=== PATIENT | female | born 1970 | race Two or more races ===

== ENCOUNTER 2020-09-15 05:45 | Inpatient (IN) | payer BC ==
[2020-09-15] VITALS (12 sets, daily range): BP systolic 86–114; BP diastolic 57–74
[~2020-09-15] VITALS: Ht 152.4 cm; Wt 83.5 kg
[~2020-09-15 05:45] MED LIST: FARXIGA10 MG PO; HUMALOG100 UNIT/1 SUBQ; LEVEMIR FL100 UNIT/2 SQ; METFORMIN HCL500 M1 ORAL
[2020-09-15] MEDS ORDERED: cefOXitin Sod 1 GM in D5W 55 ML IVPB SCH (07:00)
[2020-09-15] MEDS ORDERED: Ropivacaine 5mg/ml Vial 30ml INJ ONE (07:07)
[2020-09-15] MEDS ORDERED: Midazolam 2mg/2ml Inj ONE (07:12)
[2020-09-15] MEDS ORDERED: fentaNYL 100 mcg/2 mL IV ONE (07:12)
[2020-09-15] MEDS ORDERED: cefOXitin 1gm Inj ONE (07:26)
[2020-09-15] MEDS ORDERED: Duramorph PF 10mg/10ml amp ONE (07:27)
[2020-09-15] MEDS ORDERED: Sterile Water Irrig 1000ml IRRIG ONE (07:30)
[2020-09-15] MEDS ORDERED: ePHEDrine 50mg/ml Inj ONE (07:30)
[2020-09-15] MEDS ORDERED: NS Irrig 1000ml ONE (07:30)
[2020-09-15] MEDS ORDERED: LR 1000ml ONE (07:30)
[2020-09-15] MEDS ORDERED: NS Irrig 1000ml IRRIG ONE (08:00)
--- NOTE | 2020-09-15 08:00 | Pre-Procedure Note/Attestation ---
Pre-Procedure Note/Attestation Complete Prior to Procedure Planned Procedure: bilateral Procedure Narrative: Total Abdominal Hysterectomy, Bilateral Salpingo-oophorectomy Indications for Procedure Pre-Operative Diagnosis: Abnormal Uterine Bleeding, Pelvic Pain Attestation I attest that I discussed the nature of the procedure; its benefits; risks and complications; and alternatives (and the risks and benefits of such alternatives), prior to the procedure, with the patient (or the patient's legal traffic representative). I attest that, if there was a reasonable possibility of needing a blood transfusion, the patient (or the patient's legal traffic representative) was given the [facility] standardized written summary, pursuant to the Inder Feder[employer] Blood Safety Act ([place] Health and Safety Code # 1645, as amended). I attest that I re-evaluated the patient just prior to the surgery and that there has been no change in the patient's H&P, except as documented below: Riki Mejias MD Sep 15, 2020 08:00
[2020-09-15] MEDS ORDERED: Metoclopramide 10mg/2ml Inj ONE (08:45)
[2020-09-15] MEDS ORDERED: Lidocaine 1% MPF 10mg/ml 5ml ONE (08:45)
[2020-09-15] MEDS ORDERED: Rocuronium Bromide 50mg/5ml Inj IV ONE (09:52)
--- NOTE | 2020-09-15 10:29 | Anethesia Preoperative Eval ---
Anesthesia Pre-op PMH/ROS General Date of Evaluation: Sep 15, 2020 Time of Evaluation: 07:00 Anesthesiologist: yadiel ASA Score: ASA 2 Mallampati Score Class I : Soft palate, uvula, fauces, pillars visible Class II: Soft palate, uvula, fauces visible Class III: Soft palate, base of uvula visible Class IV: Only hard plate visible Mallampati Classification: Class II Surgeon: Magalie Surgical Procedure: FIORDALIZA Anesthesia History: none Family History: no anesthesia problems Allergies: Coded Allergies: No Known Allergies (Unverified , 09/15/20) Medications: see eMAR Patient NPO?: Yes NPO Date: Sep 15, 2020 NPO Time: 00:01 Past Medical History Pulmonary: Denies: asthma, COPD, MAGNOLIA, other Gastrointestinal/Genitourinary: Reports: GERD; Denies: CRI, ESRD, other Neurologic/Psychiatric: Reports: depression/anxiety; Denies: dementia, CVA, TIA, other Endocrine: Reports: DM; Denies: hypothyroidism, steroids, other HEENT: Denies: cataract (L), cataract (R), glaucoma, [place] (L), [place] (R), other Hematology/Immune: Reports: anemia, bleeding disorder Musculoskeletal/Integumentary: Denies: OA, RA, DJD, DDD, edema, other Other: obesity PSxH Narrative: ovaria cystectomy - no complication Anesthesia Pre-op Phys. Exam Physician Exam Last Vital Signs Date Time Temp Pulse Resp B/P (MAP) Pulse Ox O2 Delivery O2 Flow Rate FiO2 09/15/20 06:25 Room Air 09/15/20 06:22 97.5 63 18 114/74 (87) 98 Constitutional: NAD Neurologic: CN 2-12 intact Cardiovascular: RRR Respiratory: CTA Gastrointestinal: S/NT/ND Airway Exam Mallampati Classification 2 Mallampati Score: Class II MO: full ROM: full Dentures: no upper, no lower Anesthesia Pre-op A/P Labs Chemistry Test 09/15/20 06:23 POC Whole Blood Glucose Pending Urine Test Test 09/15/20 06:15 Urine HCG, Qualitative Negative (NEGATIVE) Studies Pre-op Studies: EKG - SR Risk Assessment & Plan Assessment: covid neg Plan: general/spinal Status Change Before Surgery: No Pre-Antibiotics Drug: mefoxitin Given Within 1 Hr of Incision: Yes Time Given: 07:40 Lali Nevarez CRNA Sep 15, 2020 10:29
[2020-09-15] MEDS ORDERED: Metoclopramide 10mg/2ml Inj IVP PRN (10:30)
[2020-09-15] MEDS ORDERED: fentaNYL 100 mcg/2 mL IV PRN (10:30)
[2020-09-15] MEDS ORDERED: Hydromorphone 0.5mg/0.5ml inj IVP PRN (10:30)
[2020-09-15] MEDS ORDERED: Acetaminophen (Non formulary) 100 ML IV ONE (10:30)
[2020-09-15] MEDS ORDERED: DiphenhydrAMINE 50mg/ml Inj IVP PRN (11:00)
--- NOTE | 2020-09-15 11:00 | Brief Operative Note ---
Immediate Post Operative Note Operative Note Pre-op Diagnosis: Abnormal Uterine Bleeding, Pelvic Pain Procedure: FIORDALIZA, BSO, adhesiolysis, enterolysis Post-op Diagnosis: same as pre-op Findings: consistent w/pre-op dx studies Surgeon: Riki Mejias Valve Repairer: Smiley García Anesthesiologist: Farrah Fallon Anesthesia: general Specimen: yes - Uterus, bilateral tubes and ovaries Complications: none Condition: stable Fluids: LR @125 cc/hr Estimated Blood Loss: volume - 150 ml Drains: none Implant(s) used?: No Riki Mejias MD Sep 15, 2020 11:00
--- NOTE | 2020-09-15 11:00 | Immediate Post-Op Evaluation ---
Immediate Post-Op Evalulation Immediate Post-Op Evalulation Procedure: FIORDALIZA Date of Evaluation: Sep 15, 2020 Time of Evaluation: 10:55 IV Fluids: 2000 Estimated Blood Loss: 150 Urinary Output: 200 Blood Pressure Systolic: 100 Blood Pressure Diastolic: 60 Pulse Rate: 108 Respiratory Rate: 14 O2 Sat by Pulse Oximetry: 98 Temperature (Fahrenheit): 98.9 Nausea: No Vomiting: No Complications none Patient Status: awake, reacts, patent Hydration Status: adequate Drug: mefoxitin Given Within 1 Hr of Incision: Yes Time Given: 07:40 Lali Nevarez CRNA Sep 15, 2020 11:00
--- NOTE | 2020-09-15 12:28 | NUR ---
NURSE NOTES: Handoff received from Mara FERRARA. Patient is awake and alert, no signs of acute distress noted. Right hand IV is intact and asymptomatic, running IVF as ordered. Bennett catheter noted, patent and draining to gravity. Dressings are clean, dry, and intact, no vaginal bleeding noted. Patient updated on diet and plan of care. bed is low and locked, side rails up x2, call light is within reach.
--- NOTE | 2020-09-15 12:33 | 48 Hour Post Anesthesia Eval ---
Post Anesthesia Evaluation Procedure: [facility] Date of Evaluation: Sep 15, 2020 Time of Evaluation: 12:32 Blood Pressure Systolic: 99 0: 50 Pulse Rate: 70 Respiratory Rate: 14 O2 Sat by Pulse Oximetry: 98 Airway: patent Nausea: No Vomiting: No Pain Intensity: 4 Hydration Status: adequate Cardiopulmonary Status: stable Mental Status/LOC: patient returned to baseline Post-Anesthesia Complications: none Follow-up care needed: N/A Lali Nevarez CRNA Sep 15, 2020 12:33
--- NOTE | 2020-09-15 13:20 | NUR ---
NURSE NOTES: forest technology professor messaged Dr. Mejias regarding home medications, awaiting response.
[2020-09-15] MEDS: D5 1/2NS w/KCl 20mEq 1,000 ML IV SCH ×2 (14:43→22:44)
[2020-09-15] MEDS: Tranexamic Acid 500 MG in NS 55 ML IVPB SCH ×2 (14:43→22:05)
--- NOTE | 2020-09-15 15:17 | NUR ---
CASE MANAGEMENT:INITIAL REVIEW PATIENT FROM HOME FOR PRE-PLANNED SURGERY SI;TOTAL ABDOMINAL HYSTERECTOMY BILATERAL SALPINGO-OOPHORECTOMY. ADHESIOLYSIS. ENTEROLYSIS. 98.9 121 23 89/57 97% 3L NC URINE HCG ~ NEGATIVE COVID RAPID ~ NEGATIVE TYPE AND CROSS IS;IVF NS BOLUS ZOFRAN IV REGLAN IV PROPOFOL IV VERSED IV VASOPRESSIN IV MEFOXIN IV DILAUDID IV ADMITTED TO MED SURG 3E 09/15/20 @ 1056 MED SURG STATUS DCP;PATIENT IS FROM HOME
--- NOTE | 2020-09-15 15:30 | Operative Note - Dictated ---
DATE OF OPERATION: 09/15/2020 PREOPERATIVE DIAGNOSES: Abnormal uterine bleeding and severe dysmenorrhea. POSTOPERATIVE DIAGNOSES: Abnormal uterine bleeding, severe dysmenorrhea, and pelvic and bowel adhesions. PROCEDURE PERFORMED: Total abdominal hysterectomy, bilateral salpingo-oophorectomy, pelvic adhesiolysis, and enterolysis. SURGEON: Riki Mejias MD CASH CHECKER: Smiley García MD ANESTHESIA: General endotracheal and spinal. ANESTHESIOLOGIST: Lali Nevarez CRNA PROCEDURE IN DETAIL: After all the appropriate consents were signed, the patient was brought to the operating room, placed on the table in supine position. General anesthesia was performed after spinal anesthesia was introduced. The patient was then placed in dorsal position and the abdomen and pelvis were prepped in the usual fashion for the procedure. A Bennett catheter was placed in the bladder. At this time, the patient was draped and the procedure began with making a Pfannenstiel incision around the previous scar. The previous scar was excised and the procedure continued to the subcutaneous tissue until the fascia was reached. The fascia was excised, incised, and the incision was extended bilaterally to expose the rectus muscle. Rectus muscle was reflected away from the fascia both inferiorly and superiorly. The rectus muscle was parted in the midline and peritoneum was entered sharply. Dash retractor was placed and the procedure then continued with identifying the uterus and retracting the uterus anteriorly towards the surgeons. There were some adhesions from bowel to the posterior of the uterus as well as pelvic adhesions to the uterus bilaterally. The ovaries also had some adhesions from the pelvic sidewall and from the omentum. At this time, the procedure continued with using Kochers to clamp the round ligaments. The ligaments were transected and suture ligated bilaterally. The procedure then continued with entering of the broad ligament and the uteroovarian ligaments along with the infundibulopelvic ligament were clamped, cut, and double suture ligated. Once this was completed on the right side, the same procedure was also completed on the left side. However, the ovary could not be included in the tie. Therefore, only the uteroovarian ligament was clamped, cut, and suture ligated. The procedure then continued with identifying the uterine vessels and right uterine vessels were clamped, cut, and suture ligated. The same was repeated on the left side. The cardinal ligaments were then clamped, cut, and suture ligated bilaterally until the end of the cervix was reached. The uterosacral ligaments were then clamped along with vaginal cuff and the pelvis and the uterus was completely extirpated and removed from the field. The vaginal cuff was then closed using interrupted 0 Vicryl sutures in a running fashion. At this time, the attention was turned to the left ovary and tubes and these were elevated. Additional adhesiolysis was necessary to free up tube and ovary from left pelvic sidewall. Once this was completed, the procedure continued with elevating the ovary and tube clamping and cutting and suture ligating the pedicle. At this time, irrigation was placed with old blood and debris suctioned. Once this was completed, the pelvis was once again re-evaluated and additional bleeders were identified once again after the irrigation was completed and once again when the pelvis was evaluated the one more time bleeders were identified and suture ligated. The procedure then continued with closure of the abdomen. Peritoneum was closed using 2-0 suture. The rectus muscle was approximated in the midline and the fascia was closed using 0 Vicryl suture bilaterally. The subcutaneous tissue was closed using plain suture and skin was closed using stainless steel baldo. The patient was then awakened from general anesthesia and brought to the recovery room in excellent condition. She tolerated the procedure very well. Riki Mejias M.D. DR: GRAY JOB#: [id number] CC:
[2020-09-15] MEDS: HYDROmorphone 1mg/ml Carpuject IVP PRN ×3 (16:09→22:06)
--- NOTE | 2020-09-15 16:36 | NUR ---
NURSE NOTES: Left message for Dr. Mejias regarding patient's home medications, awaiting return call.
[2020-09-15] MEDS ORDERED: METFORMIN HCL1000 M1 ORAL (16:47)
[2020-09-15] MEDS: Docusate 100mg cap ORAL SCH (18:00)
[2020-09-15] MEDS: HYDROcodone/Acetamin 5/325 tab ORAL PRN (18:06)
--- NOTE | 2020-09-15 19:30 | NUR ---
NURSE HAND-OFF: Important Events on Shift:[transfer to 3e] Patient Status: stable Diet: clear liq Pending Orders: none Pending Results/Labs: Pending MD notification: Latest Vital Signs: Temperature 97.2 , Pulse 98 , B/P 90 /60 , Respiratory Rate 15 , O2 SAT 98 , Room Air, O2 Flow Rate 3 . Vital Sign Comment: stable Latest Bahena Fall Score: 35 Fall Risk: Medium Risk Safety Measures: Call light , Bed Alarm , Side Rails Side Rails x1, Bed position . Fall Precautions: Report given to Bryan RN.
--- NOTE | 2020-09-15 19:32 | NUR ---
NURSE NOTES: Received patient from Estrada FERRARA.The patient is alert and oriented x4 and cooperative with her care.The Resp is even and unlabored and she is on Room air.She was help with turning and reposition q2 hr PRN as indicated.She has a Right hand 20g that is intact and asymptomatic. On skin assessment, she has a surgical incision on the lower abdomen that was covered with foam dressing, ABD and steri strip and is clean and dry with no bleeding noted.She also has a Bennett catheter draining under gravity of pale yellowish urine.The bed in low and locked level and the bedsides rails up x2, call light within easy reach and will continue to monitor as indicated.
--- NOTE | 2020-09-15 20:24 | NUR ---
NURSE NOTES: The patient was noted with no primary Doctor, No internal medicine doctor. Dr. Mejias was notified as indicated. He is aware and will arrange someone tomorrow.
[2020-09-15] MEDS: DiphenhydrAMINE 50mg/ml Inj IVP PRN (22:43)
[2020-09-16] VITALS (7 sets, daily range): BP systolic 107–112; BP diastolic 61–76
[2020-09-16] MEDS: HYDROmorphone 1mg/ml Carpuject IVP PRN ×2 (03:14→06:24)
[2020-09-16 05:26] LABS: BASOPHILS % (AUTO) 0.4 % (0.0-2.0); EOSINOPHILS % (AUTO) 0.5 % (0.0-3.0); HEMATOCRIT 32.9 % (37.0-47.0); HEMOGLOBIN 11.2 G/DL (12.0-16.0); MEAN CORPUSCULAR VOLUME 89 FL (80-99); MONOCYTES % (AUTO) 3.9 % (1.0-10.0); NEUTROPHILS % (AUTO) 84.2 % (45.0-75.0); PLATELET COUNT 265 K/UL (150-450); RED CELL DISTRIBUTION WIDTH 12.4 % (11.6-14.8); WHITE BLOOD COUNT 10.1 K/UL (4.8-10.8)
[2020-09-16 05:47] LABS: ANION GAP 6 mmol/L (5-15); BLOOD UREA NITROGEN 5 mg/dL (7-18); CARBON DIOXIDE 28 MMOL/L (21-32); CHLORIDE 102 MMOL/L (98-107); CREATININE 0.7 MG/DL (0.55-1.30); PHOSPHORUS 3.9 MG/DL (2.5-4.9); POTASSIUM 3.9 MMOL/L (3.5-5.1); SODIUM 136 MMOL/L (136-145)
[2020-09-16] MEDS: D5 1/2NS w/KCl 20mEq 1,000 ML IV SCH ×2 (06:22→15:39)
[2020-09-16] MEDS: DiphenhydrAMINE 50mg/ml Inj IVP PRN (06:23)
[2020-09-16] MEDS: Tranexamic Acid 500 MG in NS 55 ML IVPB SCH (06:23)
--- NOTE | 2020-09-16 07:19 | NUR ---
HAND-OFF: Report given to Jonatan FERRARA.
--- NOTE | 2020-09-16 07:45 | NUR ---
NURSE NOTES: Received patient from JOSIAS Adams. Pt alert and oriented, able to make needs known. on RA, breathing even and unlabored Denied any pain at this time. Noted with surgical wound dressing on abdomen, clean and dry. Noted with Bnenett catheter patent draining yellow urine. bed in low and locked side rails up x2, call light within easy reach and will continue to monitor.
[2020-09-16] MEDS: HYDROcodone/Acetamin 5/325 tab ORAL PRN (08:40)
[2020-09-16] MEDS: Docusate 100mg cap ORAL SCH ×2 (08:40→17:26)
[2020-09-16] MEDS ORDERED: Ketorolac 60mg Inj IM SCH (10:00)
[2020-09-16] MEDS ORDERED: HYDROcodone/Acetamin 10/325 tab ORAL PRN (10:00)
--- NOTE | 2020-09-16 12:26 | NUR ---
NURSE NOTES: Removed Bennett cath per MD order. Will continue to monitor.
--- NOTE | 2020-09-16 13:13 | NUR ---
PT Note PT judith completed, treatment initiated. Patient c/o increased pain on her abdominal incisions during any movement, specially with bed mobility tasks. Patient needs PT to increase muscle strength and instruct/train on safe transfer techniques to improve her functional mobility and gait to enable her to return home. Addendum: 09/16/20 at 1314 by KOFI MESA PT Amended: Links added.
--- NOTE | 2020-09-16 13:50 | NUR ---
NURSE NOTES: Pt voided 300cc clear yellow urine
[2020-09-16] MEDS: Milk of Magnesia 30ml Ud ORAL PRN (14:28)
[2020-09-16] MEDS ORDERED: Ketorolac 30mg Inj IV SCH (16:00)
[2020-09-16] MEDS: metFORMIN 500mg tab ORAL SCH (17:26)
--- NOTE | 2020-09-16 19:15 | NUR ---
NURSE HAND-OFF: Important Events on Shift:[DC briceno, Voiding well, pain control with toradol IM, DC IVF, Removed surgical wound dressing by MD. continue for bowel management] Patient Status: [stable] Diet: [clear liquid] Pending Orders: [] Pending Results/Labs:[] Pending MD notification:[] Latest Vital Signs: Temperature 97.8 , Pulse 74 , B/P 110 /72 , Respiratory Rate 18 , O2 SAT 95 , Room Air, O2 Flow Rate 3 . Vital Sign Comment: [stable] Latest Bahena Fall Score: 35 Fall Risk: Medium Risk Safety Measures: Call light Within Reach, Bed Alarm Zone 2, Side Rails Side Rails x2, Bed position Low and Locked. Fall Precautions: Yellow Socks Yellow Gown Door Sign Patient Fall Education Report given to [LANEY Krishna].
--- NOTE | 2020-09-16 20:00 | NUR ---
NURSE NOTES: RECEIVED PATIENT LYING IN BED, AWAKE, ALERT/ORIENTED X4, ABLE TO VERBALIZE NEEDS/DISCOMFORT, CURRENT COMPLAINT OF ABDOMINAL PAIN, 7/10; REINFORCED PAIN MANAGEMENT, VERBALIZED UNDERSTANDING. NO IV ACCESS, MD AWARE. NO SIGNS AND SYMPTOMS OF ACUTE CARDIO RESPIRATORY DISTRESS/SHORTNESS OF BREATH, NO PERIPHERAL EDEMA NOTED. S/P TOTAL ABDOMINAL HYSTERECTOMY, BILATERAL SALPINGO OOPHRECTOMY, ADHESIOLYSIS, ENTEROLYSIS, JOSE ENRIQUE INTACT/OPEN TO AIR. SIDE RAILS UP X2, BED IN LOWEST POSITION FOR SAFETY, ENCOURAGED PATIENT TO UTILIZE CALL LIGHT FOR ASSISTANCE, VERBALIZED UNDERSTANDING, CONTINUE WITH CURRENT PLAN OF CARE. NAD.
--- NOTE | 2020-09-16 20:00 | NUR ---
NURSE NOTES: RECEIVED PATIENT LYING IN BED, AWAKE, ALERT/ORIENTED X4, VERBALLY RESPONSIVE, COMPLAINED OF BACK PAIN 07/10, CHRONIC; EDUCATED PATIENT ON PAIN MANAGEMENT, VERBALIZED UNDERSTANDING. NO SIGNS AND SYMPTOMS OF ACUTE CARDIO RESPIRATORY DISTRESS/SHORTNESS OF BREATH, NO PERIPHERAL EDEMA NOTED. S/P LEFT L5-S1 DECOMPRESSION, RESECTION SYNOVIAL CYST - LF-L5, L5-S1 ALIF, DRESSINGS DRY AND INTACT TO BACK/ABDOMEN, NO STAIN NOTED. ABDOMEN LARGE, SOFT, REGULAR PO DIET 09/17, PATIENT AWARE. SIDE RAILS UP X2, BED IN LOWEST POSITION FOR SAFETY, ENCOURAGED PATIENT TO UTILIZE CALL LIGHT FOR ASSISTANCE, VERBALIZED UNDERSTANDING, CONTINUE WITH CURRENT PLAN OF CARE. NAD. Addendum: 09/17/20 at 0107 by DAYANNA BAILEY LVN CHARTED IN ERROR-
[2020-09-16] MEDS: Ketorolac 30mg Inj IM SCH (21:58)
[2020-09-17] VITALS: BP 120/66
[2020-09-17 04:00] VITALS: BP 109/64
[2020-09-17] MEDS: Ketorolac 30mg Inj IM SCH ×4 (04:25→21:54)
[2020-09-17] MEDS: Milk of Magnesia 30ml Ud ORAL PRN ×2 (04:25→20:52)
--- NOTE | 2020-09-17 06:58 | NUR ---
NURSE HAND-OFF: Important Events on Shift:[ABDOMINAL SURGICAL DRESSING REMOVED BY DR. MOISE,JOSE ENRIQUE INTACT, OPEN TO AIR-NO BOWEL MOVEMENT/GIVEN MOM THIS MORNING] Patient Status: [STABLE, AFEBRILE] Diet: [CARDIAC] Pending Orders: [N/A] Pending Results/Labs:[NA] Pending MD notification:[] Latest Vital Signs: Temperature 98.2 , Pulse 72 , B/P 109 /64 , Respiratory Rate 18 , O2 SAT 96 , Room Air, O2 Flow Rate 3 . Vital Sign Comment: [STABLE, AFEBRILE] Latest [place] Fall Score: 35 Fall Risk: Medium Risk Safety Measures: Call light Within Reach, Bed Alarm Zone 2, Side Rails Side Rails x2, Bed position Low and Locked. Fall Precautions: Yellow Socks Yellow Gown Door Sign Patient Fall Education Report given to [JOSIAS VOGT]. Addendum: 09/17/20 at 0755 by DAYANNA BAILEY LVN NURSE NOTES: PATIENT ON CLEAR LIQUID DIET
--- NOTE | 2020-09-17 07:30 | NUR ---
NURSE NOTES: Received report from Laurence DAVISON. Patient is awake and oriented during rounds, standing at bedside, grasping abdomen and complaining of severe pain r/t trying to cough. Patient assisted to bed and instructed to splint abdomen with pillow when coughing, patient education on coughing, deep breathing, and IS use provided and patient verbalized understanding and returned demonstration. Patient offered PRN pain medication but refused and stated she wanted to wait for toradol shot. Surgical site dry and intact with baldo, open to air. Patient on clear liquid diet and tolerating well, patient reporting she is passing gas but has not had BM since 09/13, per PM shift nurse is aware and PRN milk of mag was administered. Patient has no IV access, per PM shift nurse MD is aware. Patient updated on plan of care for the day. Side rails upx2 ,bed low and locked, call light within reach.
[2020-09-17 08:00] VITALS: BP 132/79
[2020-09-17] MEDS: metFORMIN 500mg tab ORAL SCH ×2 (09:11→17:11)
[2020-09-17] MEDS: Docusate 100mg cap ORAL SCH ×2 (09:11→17:11)
[2020-09-17 12:00] VITALS: BP 121/82
--- NOTE | 2020-09-17 14:06 | NUR ---
CASE MANAGEMENT: Faxed CM review and clinical info (face sheet /operative notes/ lab and imaging reports inc admit order) to [facility] [place] [facility] @ [phone]. REF# [id number].
--- NOTE | 2020-09-17 14:56 | NUR ---
NURSE NOTES: Spoke to regarding BS medication and checking. Per : Check Blood sugar Q8H. No need Insulin coverage. Metformin only. Order noted and carried out.
[2020-09-17 16:00] VITALS: BP 104/65
--- NOTE | 2020-09-17 19:12 | NUR ---
NURSE HAND-OFF: Important Events on Shift: Pain well managed, patient ambulated in room several times, tolerating clear liquids, passing flatus. Patient Status: stable Diet: clear liquid Pending Orders: N/A Pending Results/Labs: N/A Pending MD notification:N/A Latest Vital Signs: Temperature 98.2 , Pulse 62 , B/P 104 /65 , Respiratory Rate 16 , O2 SAT 98 , Room Air, O2 Flow Rate 3 . Vital Sign Comment: VS stable Latest Bahena Fall Score: 15 Fall Risk: Low Risk Safety Measures: Call light Within Reach, Bed Alarm Zone 2, Side Rails Side Rails x2, Bed position Low and Locked. Fall Precautions: Yellow Socks Yellow Gown Door Sign Patient Fall Education Report given to Laurence DAVISON.
[2020-09-17 20:00] VITALS: BP 121/71
[2020-09-18] VITALS: BP 101/55
[2020-09-18 04:00] VITALS: BP 106/59
[2020-09-18] MEDS: Ketorolac 30mg Inj IM SCH ×3 (04:19→15:56)
--- NOTE | 2020-09-18 07:30 | NUR ---
NURSE NOTES: Patient is in bed awake and able to verbalize needs. Stable. Denies pain or SOB. Breathing is even and unlabored. Patient stated that she is passing very little gas and has not had a bowel movement yet. Patient encouraged to ambulate, verbalized understanding. Patient instructed to use call light for assistance, verbalized understanding. Patient is in bed in locked and lowest position with call light within reach. All safety measures provided. Will continue to monitor.
--- NOTE | 2020-09-18 07:35 | NUR ---
NURSE HAND-OFF: Important Events on Shift:[UNEVENTFUL NIGHT, PAIN MANAGEMENT ONGOING, NO BOWEL MOVEMENT, RECEIVED MOM X1] Patient Status: [STABLE] Diet: [CLEAR LIQUID, NO N/VD] Pending Orders: [NA] Pending Results/Labs:[NA] Pending MD notification:[NA Latest Vital Signs: Temperature 97.8 , Pulse 82 , B/P 106 /59 , Respiratory Rate 18 , O2 SAT 99 , Room Air, O2 Flow Rate 3 . Vital Sign Comment: [STABLE,AFEBRILE] Latest Bahena Fall Score: 15 Fall Risk: Low Risk Safety Measures: Call light Within Reach, Bed Alarm Zone 2, Side Rails Side Rails x2, Bed position Low and Locked. Fall Precautions: Yellow Socks Yellow Gown Door Sign Patient Fall Education Report given to [ABEL].
[2020-09-18 08:00] VITALS: BP 113/70
[2020-09-18] MEDS: metFORMIN 500mg tab ORAL SCH (08:47)
[2020-09-18] MEDS: Docusate 100mg cap ORAL SCH (08:48)
[2020-09-18] MEDS: Milk of Magnesia 30ml Ud ORAL PRN (08:48)
--- NOTE | 2020-09-18 10:47 | NUR ---
NURSE NOTES: Patient had a bm. Patient stated she feels better.
[2020-09-18 12:00] VITALS: BP 100/63
--- NOTE | 2020-09-18 12:57 | NUR ---
NURSE NOTES: RN received new orders to give 6 units novolog at lunchtime, read back and entered. Patient made aware.
[2020-09-18] MEDS ORDERED: NovoLOG Insulin Flexpen SUBQ ONE (13:15)
--- NOTE | 2020-09-18 13:45 | NUR ---
CASE MANAGEMENT:REVIEW 09/16/20 SI;POD #1 TOTAL ABDOMINAL HYSTERECTOMY BILATERAL SALPINGO-OOPHORECTOMY. ADHESIOLYSIS. ENTEROLYSIS. 98.9 96 20 107/76 94% ON RA IS;DILAUDID IV NORCO PO IVF D5W @ 125 ML/HR TRANEXAMIC ACID IV Q8 TORADOL IM ONCE MED SURG STATUS DCP;PATIENT IS FROM HOME CASE MANAGEMENT:REVIEW 09/17/20 SI;POD #2 TOTAL ABDOMINAL HYSTERECTOMY BILATERAL SALPINGO-OOPHORECTOMY. ADHESIOLYSIS. ENTEROLYSIS. 98.7 75 18 121/82 96% ON RA IS;DILAUDID IV NORCO PO IVF D5W @ 125 ML/HR TRANEXAMIC ACID IV Q8 TORADOL IM ONCE MED SURG STATUS DCP;PATIENT IS FROM HOME CASE MANAGEMENT:REVIEW 09/18/20 SI;POD #3 TOTAL ABDOMINAL HYSTERECTOMY BILATERAL SALPINGO-OOPHORECTOMY. ADHESIOLYSIS. ENTEROLYSIS. 98.6 85 18 100/63 96% ON RA IS;DILAUDID IV NORCO PO IVF D5W @ 125 ML/HR TRANEXAMIC ACID IV Q8 TORADOL IM ONCE MED SURG STATUS DCP;PATIENT IS FROM HOME
--- NOTE | 2020-09-18 14:09 | NUR ---
INSURANCE CLINICALS AND REVIEW FAXED TO [employer] TO/BLAIR F: [phone] Addendum: 09/18/20 at 1411 by RADHA PATE LVN LVN REF# [id number]
[2020-09-18 16:00] VITALS: BP 103/64
--- NOTE | 2020-09-18 17:11 | NUR ---
NURSE NOTES: Patient discharged home as ordered. Stable. Patient was given thorough discharge instructions by surgeon prior to discharge. Prescription given to patient and patient stated that she will get medication filled at home pharmacy, medication teaching given to patient. Patient was assessed by surgeon prior to discharge. All questions and concerns addressed, teaching reinforced by RN. Patient's skin is c/d/i. All follow up instructions given to patient. No iv access. Patient assisted into car by RN without incident. Patient has all belongings.
--- NOTE | 2020-09-19 07:30 | Discharge Summary ---
Discharge Summary Hospital Course Date of Admission Sep 15, 2020 at 05:45 Date of Discharge Sep 18, 2020 at 17:10 Admitting Diagnosis Abnormal uterine bleeding, severe dysmenorrhea, uterine fibroids Reason for Hospitalization: Elective surgery HPI Bertha Amaya is a 50 year old female who was admitted on Sep 15, 2020 at 05:45 for ,Abnormal Uterine Bleeding, Severe Dysmenorrhea., Patient was admitted for elective surgery. Procedures s/p 09/[address] Marcano Total abdominal hysterectomy, bilateral salpingo-oophorectomy, pelvic adhesiolysis, and enterolysis. Hospital Course status post surgery course of recovery uneventful initially IV fluids s/p perioperative antibiotic incision -clean dry and intact pain management was addressed , and pain was controlled remained hemodynamically stable ambulated DVT prophylaxis with SCD provided use of incentive spirometry was encouraged while in the bed started on clear liquids diet when bowel function returned and advanced as tolerated able to tolerate IV fluids discontinued antiemetics were on board as needed blood sugar was closely monitored and managed with currnt regimen voided freely bowel regimen instituted , had bowel movement patient was stable for discharge discharge instructions provided follow up with surgeon in the office as advised FINAL DIAGNOSES 1. Abnormal uterine bleeding 2. Severe dysmenorrhea, 3. Pelvic and bowel adhesions. 4. s/p Total abdominal hysterectomy, bilateral salpingo-oophorectomy, pelvic adhesiolysis, and enterolysis. 5. Diabetes mellitus Discharge Medications Continued Medications: Dapagliflozin Propanediol (Farxiga) 10 Mg Tablet 10 MG PO DAILY for dm, TAB Insulin Detemir (Levemir Flextouch) 100 Unit/1 Ml Insuln.pen 20 UNIT SQ DAILY for Diabetes Mellitus, EA Insulin Lispro (Humalog) 100 Unit/1 Ml Vial 6 UNITS SUBQ BID for dm, #1 UNITS 0 Refills Metformin Hcl* (Metformin Hcl*) 1,000 Mg Tablet 1000 MG ORAL BID for Diabetes Mellitus, TAB Discharge Condition Upon Discharge: stable Discharge Vital Signs Last Vital Signs Date Time Temp Pulse Resp B/P (MAP) Pulse Ox O2 Delivery O2 Flow Rate FiO2 09/18/20 16:00 98.0 81 18 103/64 (77) 98 09/18/20 09:00 Room Air 09/15/20 11:20 3 Discharge Disposition Patient was discharged home Discharge Instructions Discharge Instructions Special Instructions I have been assigned to complete a D/C Summary on this account. I was not involved in the patient management Madiha Cunha NP Sep 19, 2020 07:30
[2020-09-19] MEDS ORDERED: NovoLOG Insulin Flexpen SUBQ SCH (11:30)
== END 2020-09-18 17:10 | disposition home or self-care (01) | DRG 743 ==
LOC: SDSOVERFLO 05:45 → 3E 13:47
PROC: 0UT90ZZ Resection of Uterus, Open Approach (ICD-10-PCS; principal; 2020-09-15 07:30)
PROC: 0UT70ZZ Resection of Bilateral Fallopian Tubes, Open Approach (ICD-10-PCS; principal; 2020-09-15 07:30)
PROC: 0UT20ZZ Resection of Bilateral Ovaries, Open Approach (ICD-10-PCS; principal; 2020-09-15 07:30)
PROC: 0DNW0ZZ Release Peritoneum, Open Approach (ICD-10-PCS; principal; 2020-09-15 07:30)
DX: N93.9 Abnormal uterine and vaginal bleeding, unspecified (principal); N85.8 Other specified noninflammatory disorders of uterus; N94.6 Dysmenorrhea, unspecified; E11.9 Type 2 diabetes mellitus without complications
CPT/HCPCS: 36415; 80048; 81025; 82330; 82962; 83735; 84100; 85025; 86850; 86900; 86901; 87081; 94003; 94150; J1815; J2250; J2405; J2765; J7030; U0002